=== PATIENT | male | born 1980 | race Caucasian/White ===

== ENCOUNTER 2017-01-25 15:17 | Emergency (ER) | payer MEDICARE, OTHER ==
[~2017-01-25] VITALS: Ht 180.3 cm; Wt 86.4 kg
[2017-01-25] MEDS ORDERED: LYRI150C (15:27)
[2017-01-25] MEDS ORDERED: TRAM50TA2 (15:27)
[2017-01-25] MEDS ORDERED: ADDE20CA3 PO (15:27)
[2017-01-25] MEDS ORDERED: NS 1,000 ML IV ONE (16:45)
[2017-01-25] MEDS ORDERED: NS 1,000 ML IV SCH (16:45)
[2017-01-25] MEDS ORDERED: ONDANSETRON 4 MG ORAL DISINTEGRATING TAB (S0181) PO ONE (16:45)
--- NOTE | 2017-01-25 17:16 | REP ---
Clinical: Altered mental status . Comparison: None . Findings: The ventricles, sulci, and cisterns are normal in position and appearance. Gandhi-white differentiation is maintained. No acute intracranial hemorrhage, mass/mass effect, pathology or trauma/injury. No evidence for acute infarction. No extra-axial fluid collection. Calvarium is intact. Paranasal sinuses and mastoid air cells are clear. Impression: Normal noncontrast head CT. No evidence for acute intracranial pathology or trauma/injury. Signed by Jerald Craig MD 01/25/2017 05:07 P
--- NOTE | 2017-01-25 17:16 | REP ---
Clinical: Altered mental status. Chest pain . Comparison: None . Findings: The mediastinum and cardiac silhouette are stable and within normal limits for portable technique. The lung gipson are clear without acute consolidation, effusion, or pneumothorax. Skeletal structures are intact. Impression: No acute cardiopulmonary process appreciated. Signed by Jerald Craig MD 01/25/2017 05:08 P
--- NOTE | 2017-01-25 17:17 | REP ---
Clinical: Trauma . Technique: Internal rotation, external rotation, and Y view right shoulder . Findings: No acute fracture or dislocation. The acromioclavicular and glenohumeral joints are intact. No periarticular calcifications or degenerative changes are appreciated. Sub acromial space is normal. Surrounding soft tissues are unremarkable. Impression: Normal right shoulder radiographs. Signed by Jerald Craig MD 01/25/2017 05:09 P
--- NOTE | 2017-01-25 17:18 | REP ---
Clinical: Trauma. Technique: AP, lateral right tibia / fibula. Findings: The osseous structures and joint spaces are intact and normal. There is no evidence for acute fracture or dislocation. Surrounding soft tissues are unremarkable. No subcutaneous emphysema or radiodense foreign body. Impression: No acute fracture or dislocation. Signed by Jerald Craig MD 01/25/2017 05:09 P
[2017-01-25 17:33] LABS: BASO % 0.3 % (0.0-1.0); EOS # 0.3 K/mm3 (0.0-0.50); EOS % 2.9 % (0.0-3.0); LARGE UNSTAINED CELL # 0.2 K/mm3 (0.0-0.4); LARGE UNSTAINED CELL % 1.9 % (0.0-4.0); LYMPH # 1.4 K/mm3 (1.5-4.5); LYMPH % 13.5 % (24.0-44.0); MEAN CORPUSCULAR HGB CONC 36.2 g/dl (32.0-36.5); MEAN CORPUSCULAR VOLUME 85.7 fl (80.0-96.0); MONO # 0.6 K/mm3 (0.0-0.8); MONO % 6.1 % (0.0-5.0); NEUTROPHILS # 7.5 K/mm3 (1.8-7.7); NEUTROPHILS % 75.2 % (36.0-66.0); PLATELET COUNT, AUTOMATED 196 k/mm3 (150-450); RED CELL DISTRIBUTION WIDTH 12.5 % (11.5-14.5)
[2017-01-25] MEDS ORDERED: MECLIZINE 25 MG TABLET PO ONE (17:45)
[2017-01-25 18:00] LABS: ALBUMIN 4.2 GM/DL (3.2-5.2); ALBUMIN/GLOBULIN RATIO 1.14 (1.00-1.93); ALKALINE PHOSPHATASE 86 U/L (45-117); ALT/SGPT 35 U/L (12-78); ANION GAP 6 MEQ/L (8-16); AST/SGOT 21 U/L (15-37); BILIRUBIN,DIRECT 0.1 MG/DL (0.0-0.2); BILIRUBIN,TOTAL 0.6 MG/DL (0.2-1.0); BLOOD UREA NITROGEN 14 MG/DL (7-18); CALCIUM LEVEL 8.7 MG/DL (8.5-10.1); CARBON DIOXIDE LEVEL 30 MEQ/L (21-32); CHLORIDE LEVEL 106 MEQ/L (98-107); CREATININE FOR GFR 1.12 MG/DL (0.70-1.30); GLOMERULAR FILTRATION RATE > 60.0 (>60); GLUCOSE, FASTING 94 MG/DL (70-105); POTASSIUM SERUM 3.8 MEQ/L (3.5-5.1); SODIUM LEVEL 142 MEQ/L (136-145); TOTAL PROTEIN 7.9 GM/DL (6.4-8.2)
[2017-01-25] MEDS ORDERED: MECL1CHW2 PO (18:43)
[2017-01-25 18:52] VITALS: BP 144/86
--- NOTE | 2017-01-25 19:57 | ECGEPIP ---
Stationary ECG Study [facility] - ED Test Date: 2017-01-25 Pat Name: ROYA BUENO Department: Room: - Gender: M [employer] Service Technician: sb : 1980 Requested By: Atiya Rose Order Number: [id number] Reading MD: Atiya Rose Measurements Intervals [place] Rate: 73 P: 63 WY: 147 QRS: 44 QRSD: 108 T: 15 QT: 382 QTc: 423 Interpretive Statements SINUS RHYTHM NO OLD ECG FOR COMPARISON Electronically Signed On 01-25-2017 19:57:46 EDT by Atiya Rose
== END 2017-01-25 19:03 | disposition home or self-care (01) ==
LOC: M ED 15:17
DX: S06.0X0A Concussion without loss of consciousness, initial encounter (principal); W10.8XXA Fall (on) (from) other stairs and steps, initial encounter; Y92.89 Other specified places as the place of occurrence of the external cause; Y93.01 Activity, walking, marching and hiking; Y99.9 Unspecified external cause status
CPT/HCPCS: 70450; 71010; 73030; 73590; 80048; 80076; 82140; 82550; 82553; 83605; 84443; 84484; 85025; 87040; 93005; 93041; 94760; 96360; 96361; 99284; G0480